=== PATIENT | male | born 1960 | race Caucasian/White ===

== ENCOUNTER → 2018-07-08 | Outpatient (CLI) | payer BC ==
[2018-07-08 15:57] LABS: HEMATOCRIT 51.4 % (42.0-52.0)
== END ==
LOC: LAB 15:48
PROVIDERS: Urology
DX: E29.1 Testicular hypofunction (principal); R68.82 Decreased libido; E03.9 Hypothyroidism, unspecified; E27.8 Other specified disorders of adrenal gland